=== PATIENT | male | born 1945 | race Caucasian/White ===

== ENCOUNTER 2022-04-24 05:56 | Emergency (ER) | payer MEDICARE, OTHER ==
[~2022-04-24] VITALS: Ht 175.3 cm; Wt 74.8 kg
--- NOTE | 2022-04-24 06:27 | NUR ---
pt in room 5a c/o laceration to right index finger.
[2022-04-24] MEDS ORDERED: FINA5TAB11 PO (06:28)
[2022-04-24] MEDS ORDERED: SIMV-49 PO (06:28)
--- NOTE | 2022-04-24 06:39 | NUR ---
Dr. Alvares at bedside for MSE.
[2022-04-24] MEDS ORDERED: TDAP DIPH,PERTUSS,TET VAC/PF 0.5 ML DISP.SYRIN IM ONE ×2 (06:45→06:51)
--- NOTE | 2022-04-24 07:51 | NUR ---
PT WAS D/C'd TO HOME. D/C INSTRUCTIONS GIVEN TO THE PT BY DR GU.
[2022-04-24 07:52] VITALS: BP 139/76
== END 2022-04-24 07:53 | disposition home or self-care (01) ==
LOC: ER 06:11
DX: S61.211A Laceration without foreign body of left index finger without damage to nail, initial encounter (principal); W26.0XXA Contact with knife, initial encounter; Y93.G1 Activity, food preparation and clean up; Y92.89 Other specified places as the place of occurrence of the external cause; E78.5 Hyperlipidemia, unspecified; N40.0 Benign prostatic hyperplasia without lower urinary tract symptoms; Z79.899 Other long term (current) drug therapy
CPT/HCPCS: 90715; A4663